=== PATIENT | male | born 1930 | race Asian ===

== ENCOUNTER 2017-02-11 13:59 | Inpatient (IN) ==
[2017-02-11] MEDS ORDERED: CARDIZEM PO SCH (17:00)
[2017-02-11 17:59] LABS: BASO% 0.2 % (0.0-0.8); EOS% 1.6 % (0.0-10.0); HEMATOCRIT 26.3 % (42.0-52.0); HEMOGLOBIN 7.2 g/dL (14.0-18.0); IMM GRAN# 0.03 X1000 (0.0-0.04); IMM GRAN% 0.2 % (0.0-0.5); LYMPH% 17.1 % (20.5-51.1); MANUAL DIFF NEEDED? YES; MCH 19.6 PG (27-31); MCHC 27.4 g/dL (33-37); MCV 71.7 FL (81-99); MONO% 6.5 % (1.7-9.3); MPV 9.7 FL (7.4-10.4); NEUT% 74.4 % (42.2-75.2); PLT 596 X1000 (130-400); RBC 3.67 XMIL (4.7-6.1)
[2017-02-11 18:10] LABS: ALBUMIN 4.1 g/dL (3.5-5.0); POTASSIUM 4.2 mmol/L (3.5-5.1); TOTAL BILIRUBIN 0.23 mg/dL (0.20-1.00)
[2017-02-11] MEDS ORDERED: GEODON IM PRN (18:18)
[2017-02-11] MEDS ORDERED: STERILE WATER INJ. INJ PRN (18:18)
--- NOTE | 2017-02-11 18:39 | HISTORY AND PHYSICAL ---
HISTORY OF PRESENT ILLNESS: Mr. Rudolph is an 86-year-old, [place] gentleman, comes with complaints of shortness of breath. Mr. Rudolph is well known case of coronary artery disease. About a year ago, he had acute myocardial infarction and a stent placed. He also has mild hypertension, maturity onset diabetes, dementia, severe degenerative arthritis. He was very short of breath. Had bilateral severe congestion in the chest and some intermittent retrosternal chest pain. So he was admitted to the hospital. Other details of personal, past, and family history are noncontributory, except for what has been mentioned. SURGICAL HISTORY: He had a total knee replacement on the right side. Rotator cuff surgery in the right shoulder and had a stent placed in. REVIEW OF SYSTEMS: He has generalized weakness. Cardiopulmonary: Severe shortness of breath, cough with expectoration. PHYSICAL EXAMINATION: GENERAL: Mr. Rudolph is alert, oriented. VITAL SIGNS: Reveal temperature normal, pulse 88 per minute, respiratory rate 20 per minute, blood pressure 130/60. HEAD: Normocephalic. EYES: Pupils PERRLA. Fundus examination not done. NECK: Supple. JVP normal. ENT: Examination unremarkable. LYMPHATIC/VASCULAR: There is no evidence of lymphadenopathy, thyroid enlargement, pedal edema, calf tenderness, cyanosis or clubbing. There is anemia with pallor of skin and mucous membrane. Pedal pulses well felt. BREASTS: Exam normal. CHEST: Normal inspection. LUNGS: Reveal bilateral expiratory wheezing with some basal rales. PMI in the 6th intercostal space outside the midclavicular line. HEART: Sounds normal. No murmur, gallop or rub noted. ABDOMEN: Nondistended. Hernial orifices normal. No guarding, rigidity, free fluid, masses, or organomegaly. Bowel sounds normal. RECTAL: Deferred. PROPERTY MAN: Higher functions are normal. Cranial nerves normal except for some intermittent confusion from dementia. Cranial nerves normal. Motor and sensory system examination unremarkable. Deep tendon reflexes normal. Plantars downgoing. Skull and spine examination normal for age. No cerebellar signs or signs of meningeal irritation. LOCOMOTOR AND SKIN: Examination unremarkable. CLINICAL IMPRESSION: 1. Chest pain. 2. Congestive heart failure. PLAN: To start IV Lasix on him. Continue with the current management. cc: Konstantin Valdivia MD
[2017-02-11] MEDS ORDERED: PNEUMOVAX 23 IM ONE (18:45)
[2017-02-11 18:50] LABS: BANDS 2 % (0-1); LYMPHS 15 % (21-51); MONO 3 % (1-9)
[2017-02-11 18:51] LABS: HYPOCHROM 2+
[2017-02-11 18:52] LABS: LARGE PLATELETS OCCASIONAL
--- NOTE | 2017-02-11 19:25 | Diag Imaging Result Doc PS360 ---
EXAM: CHEST-2 VIEWS INDICATION: chf TECHNIQUE: PA and lateral COMPARISON: 07/19/2016 FINDINGS: There is suggestion of mild fibrotic change at the right lower lung zone, stable. The lungs are grossly clear, otherwise. There is no definite pleural fluid collection. The aorta is tortuous, stable. Cardiac silhouette and central vasculature are essentially unremarkable. There is stable extensive degenerative change involving both shoulders. IMPRESSION: Stable chronic appearing interstitial thickening at the right lower lung zone. No definite acute pathology. Electronically signed by Kelton Stark 02/11/2017 7:22 PM
[2017-02-11] MEDS: ASPIRIN EC PO SCH (20:11)
[2017-02-11] MEDS: LASIX IV SCH (20:11)
[2017-02-11] MEDS: ULTRAM PO SCH (20:11)
[2017-02-11] MEDS: ZOCOR PO SCH (20:11)
[2017-02-11] MEDS: AMARYL PO SCH (20:11)
[2017-02-11] MEDS: SENOKOT PO SCH (20:11)
[2017-02-11] MEDS: CARDIZEM PO SCH (20:12)
[2017-02-11] MEDS: KEPPRA PO SCH (20:47)
[2017-02-11] MEDS: ELAVIL PO SCH (20:47)
[2017-02-11] MEDS ORDERED: ZOCOR PO SCH (21:00)
[2017-02-11] MEDS ORDERED: ELAVIL PO SCH (21:00)
[2017-02-12 05:37] LABS: ALBUMIN 3.6 g/dL (3.5-5.0); CALCIUM 8.9 mg/dL (8.8-10.2); POTASSIUM 3.6 mmol/L (3.5-5.1); TOTAL BILIRUBIN 0.29 mg/dL (0.20-1.00); TOTAL PROTEIN 7.1 g/dL (6.3-8.3)
[2017-02-12] MEDS: LINZESS PO SCH (06:47)
[2017-02-12] MEDS: PRILOSEC PO SCH (06:47)
--- NOTE | 2017-02-12 08:57 | PROGRESS NOTE ---
DATE: 02/12/2017 Mr. Rudolph had some chest pain last night. He is short of breath. He is in congestive heart failure. He is anemic. We are going to do the stool occult blood studies and transfuse him 2 units of packed RBCs. Overall condition is otherwise unchanged. -5 cc: Konstantin Valdivia MD
[2017-02-12] MEDS ORDERED: POTASSIUM CHLORIDE 10 MEQ PO SCH (09:00)
[2017-02-12] MEDS ORDERED: TOPROL XL PO SCH (09:00)
[2017-02-12] MEDS ORDERED: NON-FORMULARY MED (Omeprazole [Omeprazole] 40 MG) PO SCH (09:00)
[2017-02-12] MEDS: CARDIZEM PO SCH ×2 (09:06→20:44)
[2017-02-12] MEDS: KLOR-CON PO SCH (09:06)
[2017-02-12] MEDS: KEPPRA PO SCH ×2 (09:06→20:46)
[2017-02-12] MEDS: LASIX IV SCH ×2 (09:06→20:47)
[2017-02-12] MEDS: SYNTHROID PO SCH (09:06)
[2017-02-12] MEDS: ASPIRIN EC PO SCH ×2 (09:06→20:45)
[2017-02-12] MEDS: ULTRAM PO SCH ×2 (09:06→20:47)
[2017-02-12] MEDS: TOPROL XL PO SCH (09:06)
[2017-02-12] MEDS: AMARYL PO SCH ×2 (09:06→20:45)
--- NOTE | 2017-02-12 09:17 | ECHO REPORT ---
ORDER DATE: 02/11/2017 INTERPRETING PHYSICIAN: Dr. Boyd. CLINICAL INDICATIONS: An 86-year-old male with CHF. M-MODE MEASUREMENTS: Right ventricle: 1.8 cm. Left ventricle end diastole: 4.1 cm. Left ventricle end systole: 2.9 cm. Posterior wall: 1.0 cm. Interventricular septum: 1.0 cm. Left atrium: 3.0 cm. Aortic root: 3.5 cm. SUMMARY OF 2-DIMENSIONAL IMAGIN. The left ventricular function is normal, ejection fraction estimated at 65%. No wall motion abnormality noted. The chamber is not dilated. 2. The right ventricle is normal. 3. The aortic valve shows sclerosis of the cusps without stenosis, maximum gradient 13 mm, mean gradient 7 mm. The valve area is normal. Color flow mapping indicates a very mild degree of aortic regurgitation. 4. The mitral annulus shows mild thickening of it. The leaflets of the mitral valve open normally. Color flow mapping indicates trace of regurgitation. Pulsed wave Doppler of mitral inflow shows reversal of the E/A wave. The ratio is 0.6. 5. The tissue Doppler of septal and lateral mitral annulus averages 5 cm. There is impaired left ventricular relaxation. The pulmonary venous flow shows normal pattern. 6. The inferior vena cava is not dilated. 7. The tricuspid valve shows a mild degree of regurgitation. The pulmonary pressure is estimated at 28 mmHg. That is normal. 8. The pulmonic valve looks normal, color flow mapping unremarkable. 9. There is no pericardial effusion, masses, nor thrombus. CONCLUSIONS: In summary, this study shows: 1. Normal left ventricular systolic function with normal chamber size. 2. Impaired left ventricular relaxation. 3. Normal pulmonary pressure. 4. Sclerosis of the aortic valve with a trivial degree of aortic regurgitation. No stenosis is present. Clinical correlation recommended. cc: MD Konstantin Richard MD
[2017-02-12] MEDS: EFFIENT PO SCH (09:33)
[2017-02-12] MEDS: FLEET ENEMA PR ONE ×2 (09:33→12:56)
[2017-02-12] MEDS ORDERED: NS 500 ML ONE (11:46)
--- NOTE | 2017-02-12 15:14 | CONSULTATION ---
DATE OF CONSULTATION: 02/12/2017 HISTORY OF PRESENT ILLNESS: Mr. Rudolph is an 86-year-old gentleman who has a history of coronary artery disease and what sounds like potentially mid LAD and ostial circumflex disease, treated with balloon angioplasty in June 2016. That was at the time of a [id number] MS. He re-presented yesterday and was admitted by Dr. Valdivia. The patient is not able to speak any Tajik and translation is done through the son. There is some difficulty with communication, but it sounds like he has been having some weakness, fatigue, and shortness of breath. I do not get a clear history of any significant chest discomfort. In addition, he was noted to be anemic with a hematocrit of 26, but no obvious blood in his stool or dark black stool. Reportedly, the patient has been compliant with medications, including Effient and aspirin therapy. Again, history is very difficult in this patient. PAST MEDICAL HISTORY: 1. Significant for coronary artery disease with PCI as detailed above. 2. Hypertension. 3. Osteoarthritis. 4. History of seizure disorder. 5. History of stroke. SOCIAL HISTORY: No current tobacco use. Lives in [place]. Multiple family members are present in the room today. FAMILY HISTORY: Significant for hypertension. REVIEW OF SYSTEMS: A 10-system review of systems is negative except for those things mentioned in HPI. PHYSICAL EXAMINATION: Vital Signs: He is afebrile. His heart rate is 85. His blood pressure is 115/65. General: He is in no acute distress. HEENT: Oropharynx is moist. He has normal dentition. His eye examination shows pink conjunctivae and white sclerae. Neck: Examination shows no obvious thyromegaly or thyroid tenderness. Cardiovascular: He sounds to be in a regular rate and rhythm. He has no obvious murmurs. He has no S3 present. He has no lower extremity edema. Chest: Exam is clear bilaterally. He has no increased work of breathing. Abdomen: Soft, nontender, and nondistended. No obvious organomegaly. Skin: Warm and dry throughout, without any rashes. Neurological: Moving all extremities well. Cranial nerves 2 through 12 are intact, without sensation deficits. Psychiatric: Seems alert, oriented, and pleasant. He is able to respond somewhat via his son, who is the senior mobile web developer. DATA: He had an echo this hospitalization showing an EF of 65%, impaired LV relaxation, and sclerosis of the aortic valve was noted. His laboratory data has been evaluated and shows a white count of 12.2 yesterday, hematocrit 26.3, platelet count 596,000. He did have a bandemia of 2. He had a sodium this morning of 139. Potassium is 3.6. His BUN is 23 and creatinine 1.3. His cardiac enzymes have been negative. His proBNP was essentially normal at 195. He had a chest x-ray that demonstrated stable chronic-appearing interstitial thickening of the right lower lung zone. No definite acute findings. His EKG is still pending. ASSESSMENT: What sounds like generalized fatigue and possible chest discomfort in a patient with a history of coronary artery disease and anemia. PLAN: He is receiving 2 units of packed cells per the instruction of his primary physician. We may consider doing myocardial perfusion imaging in the upcoming days in this hospitalization. Presently, I would just continue him on his current medications, including the aspirin and the Effient. He needs an anemia evaluation to assess the source of blood loss. It sounds like he had a PCI to the mid LAD and ostial circumflex as well as a balloon angioplasty to the mid OM. Would not recommend stopping the Effient at this time, given that he has only been on drug therapy for around 7 months. Further recommendations to follow. cc: MD Konstantin Peacock MD
[2017-02-12] MEDS: ZOCOR PO SCH (20:44)
[2017-02-12] MEDS: ELAVIL PO SCH (20:46)
[2017-02-12] MEDS: SENOKOT PO SCH (20:46)
[2017-02-12] MEDS: HUMALOG SUBQ SCH (20:47)
[2017-02-13] MEDS: NORCO-5 PO PRN ×2 (01:43→05:11)
[2017-02-13 05:08] LABS: MANUAL DIFF NEEDED? NO
[2017-02-13 05:33] LABS: BASO% 0.6 % (0.0-0.8); EOS# 0.46 X1000 (0.0-0.7); EOS% 4.7 % (0.0-10.0); HEMATOCRIT 36.7 % (42.0-52.0); HEMOGLOBIN 11.3 g/dL (14.0-18.0); IMM GRAN# 0.09 X1000 (0.0-0.04); IMM GRAN% 0.9 % (0.0-0.5); LYMPH# 2.27 X1000 (1.2-3.4); LYMPH% 23.4 % (20.5-51.1); MCH 23.4 PG (27-31); MCHC 30.8 g/dL (33-37); MCV 76.1 FL (81-99); MONO# 0.96 X1000 (0.11-0.59); MONO% 9.9 % (1.7-9.3); MPV 9.8 FL (7.4-10.4); NEUT% 60.5 % (42.2-75.2); PLT 463 X1000 (130-400); RBC 4.82 XMIL (4.7-6.1)
[2017-02-13 05:58] LABS: CALCIUM 9.1 mg/dL (8.8-10.2); POTASSIUM 3.8 mmol/L (3.5-5.1)
[2017-02-13] MEDS: HUMALOG SUBQ SCH ×4 (06:34→20:44)
[2017-02-13] MEDS: PRILOSEC PO SCH (06:39)
[2017-02-13] MEDS: LINZESS PO SCH (06:39)
[2017-02-13] MEDS: AMARYL PO SCH ×2 (09:07→20:41)
[2017-02-13] MEDS: CARDIZEM PO SCH ×2 (09:08→20:38)
[2017-02-13] MEDS: ASPIRIN EC PO SCH (09:08)
[2017-02-13] MEDS: EFFIENT PO SCH (09:09)
[2017-02-13] MEDS: KEPPRA PO SCH ×2 (09:09→20:39)
[2017-02-13] MEDS: TOPROL XL PO SCH (09:10)
[2017-02-13] MEDS: SYNTHROID PO SCH (09:10)
[2017-02-13] MEDS: LASIX IV SCH ×2 (09:10→20:41)
[2017-02-13] MEDS: KLOR-CON PO SCH (09:10)
[2017-02-13] MEDS: ULTRAM PO SCH ×2 (09:11→20:39)
--- NOTE | 2017-02-13 09:24 | PROGRESS NOTE ---
DATE: 02/13/2017 SUBJECTIVE: He is doing better. His vital signs are stable. He received 2 units of packed RBC transfusion yesterday and his hemoglobin is has come back up to 11.3 from 7.2. His electrolyte status is normal. Overall condition is stable. We will try to get the CT scan of the abdomen, as he has some intermittent abdominal pain. We are also going to start physical therapy. He was seen by Dr. Presley Paez, the registered nurse post partum, who is probably planning to do the stress test on him. cc: Konstantin Valdivia MD
--- NOTE | 2017-02-13 11:05 | Diag Imaging Result Doc PS360 ---
EXAM: ABDOMEN/PELVIS W/O CONTRAST HISTORY: abd pain TECHNIQUE: CT urogram without contrast with dose reduction (clarity.) COMMENT: There is apparent of bilateral fibrosis in the lung bases. The liver is slightly inhomogeneous in density and may be slightly enlarged. It is also somewhat hypodense suggesting the possibility of steatosis. Spleen is not enlarged. The right kidney is atrophic in appearance and there are multiple calculi some of which exceed a centimeter in size. No stones are seen in the left kidney. There is stool throughout the colon. There is no evidence of ureterolithiasis or hydronephrosis. There is no evidence of cholelithiasis. No free fluid is present. There is a left inguinal hernia through which a portion of the distal left colon herniates. This does not appear to be obstructed. There are degenerative disc changes throughout the thoracic the lumbar and visualized thoracic spine. IMPRESSION: Right nephrolithiasis. No evidence of obstructive uropathy. Constipation. Left inguinal hernia. Electronically signed by Balwinder Etienne 02/13/2017 11:03 AM
[2017-02-13] MEDS: ELAVIL PO SCH (20:38)
[2017-02-13] MEDS: ZOCOR PO SCH (20:38)
[2017-02-13] MEDS: SENOKOT PO SCH (20:39)
[2017-02-14] MEDS: LINZESS PO SCH (06:39)
[2017-02-14] MEDS: PRILOSEC PO SCH (06:39)
[2017-02-14] MEDS: HUMALOG SUBQ SCH (06:42)
[2017-02-14 07:17] VITALS: BP 113/59
[2017-02-14] MEDS: SYNTHROID PO SCH (08:25)
[2017-02-14] MEDS: ULTRAM PO SCH (08:25)
[2017-02-14] MEDS: KLOR-CON PO SCH (08:25)
[2017-02-14] MEDS: KEPPRA PO SCH (08:25)
[2017-02-14] MEDS: CARDIZEM PO SCH (08:25)
[2017-02-14] MEDS: LASIX IV SCH (08:26)
[2017-02-14] MEDS: AMARYL PO SCH (08:26)
[2017-02-14] MEDS: TOPROL XL PO SCH (08:26)
[2017-02-14] MEDS: EFFIENT PO SCH (08:26)
[2017-02-14] MEDS ORDERED: ASPIRIN EC PO SCH (09:00)
[2017-02-14 09:53] LABS: MANUAL DIFF NEEDED? NO
[2017-02-14 10:01] LABS: BASO% 0.7 % (0.0-0.8); EOS# 0.41 X1000 (0.0-0.7); HEMATOCRIT 39.1 % (42.0-52.0); HEMOGLOBIN 12.2 g/dL (14.0-18.0); IMM GRAN# 0.05 X1000 (0.0-0.04); IMM GRAN% 0.6 % (0.0-0.5); LYMPH# 2.01 X1000 (1.2-3.4); LYMPH% 24.6 % (20.5-51.1); MCH 23.7 PG (27-31); MCHC 31.2 g/dL (33-37); MCV 76.1 FL (81-99); MONO# 0.79 X1000 (0.11-0.59); MONO% 9.7 % (1.7-9.3); NEUT% 59.4 % (42.2-75.2); PLT 482 X1000 (130-400); RBC 5.14 XMIL (4.7-6.1)
[2017-02-14 10:22] LABS: CALCIUM 9.6 mg/dL (8.8-10.2); POTASSIUM 3.8 mmol/L (3.5-5.1)
--- NOTE | 2017-02-14 11:01 | PROGRESS NOTE ---
DATE: 02/14/2017 Mr. Rudolph's hemoglobin is 12.2 today. His electrolytes done today are normal. BUN is 24, creatinine 1.4. We will discharge him today. -5 cc: Konstantin Valdivia MD
--- NOTE | 2017-02-14 12:11 | DISCHARGE SUMMARY ---
ADMISSION DATE: 02/11/2017 DISCHARGE DATE: 02/14/2017 HISTORY OF PRESENT ILLNESS AND REASON FOR ADMISSION: Mr. Rudolph came with congestive heart failure. His chest x-ray was unremarkable except for some pulmonary congestion. Echocardiogram was suggestive of normal left ventricular systolic function and left ventricular relaxation. Normal pulmonary pressure sclerosis of the aortic valve. The ejection fraction was 65%. CT scan of the abdomen revealed multiple stones in the right kidney, as well as left inguinal hernia and constipation, otherwise it was negative. HOSPITAL COURSE: He was given IV Lasix. General condition improved. His oxygen saturation was 91%. He was given some oxygen. He is doing much better. He can lie down flat in his bed now. He will be discharged. We will make arrangements for home health care. FINAL DIAGNOSES: 1. Congestive heart failure, possibly acute diastolic congestive heart failure. 2. Coronary artery disease. 3. Nephrolithiasis on the right side. 4. Left inguinal hernia. 5. Dementia. 6. Diabetes. 7. Hypertension. 8. Severe degenerative arthritis. FOLLOWUP: I will follow him within about 15 days. No new prescription is given today. cc: Konstantin Valdivia MD
--- NOTE | 2017-02-18 04:51 | DISCHARGE SUMMARY ---
ADMISSION DATE: 02/11/2017 DISCHARGE DATE: 02/14/2017 ADDENDUM: On discharge summary on Mr. Que Rudolph. Mr. Rudolph is being discharged today. Add one more diagnosis for discharge diagnoses: Anemia. He received 2 units of packed RBC transfusion. Initial hemoglobin was 7.1, and the final hemoglobin is 12.2. White count is 8.18. cc: Konstantin Valdivia MD
== END 2017-02-14 11:36 | disposition home health service (06) ==
LOC: DIRADM 13:59 → 4N 16:09 → 3S 19:15
PROVIDERS: ADMIT Internal Medicine; ATTEND Internal Medicine